=== PATIENT | female | born 1955 | race Hispanic/Latino ===

== ENCOUNTER → 2019-04-23 | Outpatient (CLI) | payer OTHER ==
[~2019-04-23] MED LIST: IOPAMIDOL 370 MG/ML 200 ML INFUS..BTL INJ ONE; SODIUM CHLORIDE 0.9% 250ML 250 ML ONE
[2019-04-23 08:44] LABS: BLOOD UREA NITROGEN 14 mg/dL (7-26); BUN/CREATININE RATIO 20 (6-25); EST GLOMERULAR FILTRATION RATE > 60 ML/MIN (60-)
--- NOTE | 2019-04-23 11:16 | Diagnostic Imaging Report ---
ADDENDUM #1 On further review: There right ureter terminates with at right ureterocele. One of the aforementioned uterine fibroids indents the posterior wall of the bladder. Signed by: Roseann Alvarado MD on 05/22/2019 4:29 PM ORIGINAL REPORT EXAM: CT abdomen and pelvis without and with contrast - Hematuria protocol INDICATION: Hematuria COMPARISON: None. TECHNIQUE: Abdomen and pelvis were scanned in prone position without and with contrast. Delayed phase imaging obtained. Coronal and sagittal reformations were obtained. Routine protocol was performed. Scan was performed when during portal venous phase. IV CONTRAST: 150 mL of Isovue-370 ORAL CONTRAST: Water RADIATION DOSE: Total DLP: 960.1 mGy*cm Dose modulation, iterative reconstruction, and/or weight based adjustment of the mA/kV was utilized to reduce the radiation dose to as low as reasonably achievable. COMPLICATIONS: None FINDINGS: LINES and TUBES: None. LOWER THORAX: Mild subsegmental atelectasis at the portions of bilateral lungs. Subcentimeter calcified granulomas in the left lower lobe. HEPATOBILIARY: No focal hepatic lesions. No biliary ductal dilation. GALLBLADDER: No radio-opaque stones or sludge. No wall thickening. SPLEEN: No splenomegaly. PANCREAS: No focal masses or ductal dilatation. ADRENALS: No adrenal nodules KIDNEYS/URETERS: Kidneys enhance symmetrically. No hydronephrosis. 6 mm simple left midpole renal cyst. The majority of the ureters are opacified and demonstrate no specific evidence of urothelial lesion. No evidence of mass or hydronephrosis. GI TRACT: No abnormal distention, wall thickening, or evidence of bowel obstruction. Appendix is unremarkable. PELVIS: The bladder is opacified on delayed images and demonstrates no evidence of urothelial lesion. Multiple uterine fibroids, the largest measuring up to 2.5cm with internal coarse calcification. LYMPH NODES: No lymphadenopathy. VESSELS: Unremarkable. PERITONEUM / RETROPERITONEUM: No free air or fluid. BONES AND SOFT TISSUES: No acute bony findings or suspicious lytic or blastic lesions. IMPRESSION: No evidence of renal mass, stone, or urothelial lesion. Signed by: Roseann Alvarado MD on 04/23/2019 11:12 AM
== END ==
LOC: CT 07:38
PROVIDERS: ATTEND Urology
DX: R31.21 Asymptomatic microscopic hematuria (principal)
CPT/HCPCS: 36415; 74178; 82565; 84520; J7050; Q9967

== ENCOUNTER 2020-02-05 09:22 | Emergency (ER) | payer OTHER ==
[~2020-02-05] VITALS: Ht 157.5 cm; Wt 70.1 kg
--- OUTSIDE RECORDS SUMMARY | 2020-02-05 09:25 | XMS REPORT ---
Author Author [facility] Address Unknown Phone Unavailable Care Team Providers Care Aging Box Hand Name Role Phone MADELYN JOLLEY Unavailable Unavailable Problems This patient has no known problems. Allergies, Adverse Reactions, Alerts This patient has no known allergies or adverse reactions. Medications This patient has no known medications. Results Test Description Test Time Test Comments Text Results Atomic Results Result Comments SCR MAMM BILATERAL DELFINO CAD DIGITAL 2019-05-02 12:26:01 - SCR MAMM BILATERAL DELFINO CAD DIGITALBILATERAL DIGITAL SCREENING MAMMOGRAM 3D/2D WITH CAD: 04/16/2019CLINICAL: Asymptomatic. Digital breast tomosynthesis was performed in addition to routine CC and MLO views. Current mammographic images were evaluated by either a [employer] M-Vu or a [employer] ImageChecker CAD (computer aided detection system). Comparison is made to exams dated 09/10/2013 mammogram and 08/16/2012 mammogram - [facility]. The tissue of both breasts is heterogeneously dense. This may lower the sensitivity of mammography. There are benign calcifications in both breasts. There are multiple circumscribed masses in the upper outer left breast. Otherwise, no suspicious mass, architectural distortion, malignant type calcification, or lymph node abnormality detected. IMPRESSION: INCOMPLETE ASSESSMENT: ADDITIONAL IMAGING EVALUATION RECOMMENDEDMultiple circumscribed masses in the upper outer left breast could represent benign cysts. Further evaluation with breast ultrasound is recommended.Johnny Kellogg M.D. et/:05/02/2019 12:26:01 Simulation Educator: Zara ZUNIGA, [facility]-FWletter sent: Additional Imaging Mammogram BI-RADS: [address] ABDOMEN/PELVIS WOW 2019-04-23 10:37:[address] [address] Patient Name: LORETTA BOURGEOIS MR #: [id number] : 1955 Age/Sex: 63/F Req #: [id number] [facility] Physician: Ordered by: MADELYN JOLLEY MD Report #: [id number] Location: CT Room/Bed: Procedure: [id number] CT/CT ABDOMEN/PELVIS WOW Exam Date: 04/23/19 Exam Time: 09 REPORT STATUS: Signed ADDENDUM #1 On further review: There right ureter terminates with at right ureterocele. One of the aforementioned uterine fibroids indents the posterior wall of the bladder. Signed by: Paola Villavicencio MD on 05/22/2019 4:29 PM ORIGINAL REPORT EXAM: CT abdomen and pelvis without and with contrast - Hematuria protocol INDICATION: Hematuria COMPARISON: None. TECHNIQUE: Abdomen and pelvis were scanned in prone position without and with contrast. Delayed phase imaging obtained. Coronal and sagittal reformations were obtained. Routine protocol was performed. Scan was performed when during portal venous phase. IV CONTRAST: 150 mL of Isovue-370 ORAL CONTRAST: Water RADIATION DOSE: Total DLP: 960.1 mGy*cm Dose modulation, iterative reconstruction, and/or weight based adjustment of the mA/kV was utilized to reduce the radiation dose to as low as reasonably achievable. COMPLICATIONS: None FINDINGS: LINES and TUBES: None. LOWER THORAX: Mild subsegmental atelectasis at the portions of bilateral lungs. Subcentimeter calcified granulomas in the left lower lobe. HEPATOBILIARY: No focal hepatic lesions. No biliary ductal dilation. GALLBLADDER: No radio-opaque stones or sludge. No wall thickening. SPLEEN: No splenomegaly. PANCREAS: No focal masses or ductal dilatation. ADRENALS: No adrenal nodules KIDNEYS/URETERS: Kidneys enhance symmetrically. No hydronephrosis. 6 mm simple left midpole renal cyst. The majority of the ureters are opacified and demonstrate no specific evidence of urothelial lesion. No evidence of mass or hydronephrosis. GI TRACT: No abnormal distention, wall thickening, or evidence of bowel obstruction. Appendix is unremarkable. PELVIS: The bladder is opacified on delayed images and demonstrates no evidence of urothelial lesion. Multiple uterine fibroids, the largest measuring up to 2.5cm with internal coarse calcification. LYMPH NODES: No lymphadenopathy. VESSELS: Unremarkable. PERITONEUM / RETROPERITONEUM: No free air or fluid. BONES AND SOFT TISSUES: No acute bony findings or suspicious lytic or blastic lesions. IMPRESSION: No evidence of renal mass, stone, or urothelial lesion. Signed by: Paola Villavicencio MD on 04/23/2019 11:12 AM Dictated By: PAOLA VILLAVICENCIO MD [id number] Transcribed By: HALLEY on 04/23/19 [id number] COPY TO: MADELYN JOLLEY MD
[2020-02-05] MEDS ORDERED: ONDANSETRON HCL INJ 2MG/ML 2ML 2 MG/ML VIAL IV STA (09:56)
[2020-02-05] MEDS ORDERED: MORPHINE SULFATE INJ 4 MG/ML INJ 1ML IV ONE (10:00)
[2020-02-05] MEDS ORDERED: MORPHINE SULFATE INJ 4 MG/ML INJ 1ML ONE (10:15)
--- NOTE | 2020-02-05 10:43 | Diagnostic Imaging Report ---
EXAM: CT Abdomen and Pelvis WITHOUT intravenous contrast INDICATION: Abdominal pain COMPARISON: None. TECHNIQUE: Abdomen and pelvis were scanned utilizing a multidetector helical scanner from the lung base to the pubic symphysis without administration of IV contrast. Coronal and sagittal reformations were obtained. IV CONTRAST: None ORAL CONTRAST: CT abdomen and pelvis of 04/23/2019 COMPLICATIONS: None RADIATION DOSE: Total DLP: 489 mGy*cm Dose modulation, iterative reconstruction, and/or weight based adjustment of the mA/kV was utilized to reduce the radiation dose to as low as reasonably achievable. FINDINGS: LOWER THORAX: Normal. HEPATOBILIARY: No focal liver lesion. No biliary ductal dilation. Normal gallbladder. SPLEEN: No splenomegaly. PANCREAS: No focal masses or ductal dilatation. ADRENALS: No adrenal nodules. KIDNEYS/URETERS: No hydronephrosis, stones, or solid mass lesions. PELVIC ORGANS/BLADDER: Calcified uterine fibroids PERITONEUM / RETROPERITONEUM: No free air or fluid. LYMPH NODES: No lymphadenopathy. VESSELS: Unremarkable. GI TRACT: No abnormal bowel thickening. No bowel obstruction. Normal appendix. BONES AND SOFT TISSUES: No acute osseous injury. IMPRESSION: No acute findings in the abdomen or pelvis. Signed by: Roseann Alvarado MD on 02/05/2020 10:40 AM
[2020-02-05] MEDS ORDERED: PEPCID20 MG PO (12:48)
--- NOTE | 2020-02-05 13:00 | NUR ---
no vomiting noted. pt resting family in room
--- NOTE | 2020-02-05 13:17 | Diagnostic Imaging Report ---
EXAM: Right upper quadrant abdominal ultrasound INDICATION: Right upper quadrant pain COMPARISON: CT abdomen and pelvis of 02/05/2020 TECHNIQUE: Transverse and longitudinal images of the right upper quadrant abdomen were obtained FINDINGS: Liver: Size: 14.1 cm in the right midclavicular line, normal Appearance: Increased echogenicity, smooth contour Mass: No focal masses Gallbladder: No gallbladder distension, pericholecystic fluid, wall thickening, stone, or reported sonographic Montez's sign. Gallbladder wall measures 2 mm. Bile Ducts: Intrahepatic Ducts: No dilatation Extrahepatic Ducts: Common bile duct measures 3 mm Pancreas: Visualized portions of the pancreatic head, neck and proximal body are normal. Kidney: The right kidney measures 9.2 cm without evidence of hydronephrosis or stone. Vessels: Aorta: Visualized portions are normal Inferior Vena Cava: Visualized portions are normal Main Portal Vein: 0.5 cm, normal size with hepatopetal flow. Free Fluid: No ascites or pleural effusion IMPRESSION: No sonographic evidence of cholelithiasis or cholecystitis. Hepatic steatosis. Signed by: Roseann Alvarado MD on 02/05/2020 1:14 PM
== END 2020-02-05 13:06 | disposition home or self-care (01) ==
LOC: FSED 09:22
DX: R10.11 Right upper quadrant pain (principal); R10.13 Epigastric pain; R11.0 Nausea
CPT/HCPCS: 74176; 76705; 80048; 80076; 81003; 85025; 99283; J2270; J2405